=== PATIENT | female | born 1980 | race Caucasian/White ===

== ENCOUNTER 2019-12-20 11:40 | Emergency (ER) | payer OTHER ==
[~2019-12-20] VITALS: Ht 157.5 cm; Wt 80.7 kg
== END 2019-12-20 13:26 | disposition home or self-care (01) ==
LOC: ER 11:40
DX: M94.0 Chondrocostal junction syndrome [Tietze] (principal)

== ENCOUNTER 2020-06-12 11:30 | Emergency (ER) | payer OTHER ==
[~2020-06-12] VITALS: Ht 154.9 cm; Wt 83.9 kg
[2020-06-12] MEDS ORDERED: ZESTRIL5 MG (11:45)
== END 2020-06-12 17:31 | disposition home or self-care (01) ==
LOC: ER 11:30
DX: M54.2 Cervicalgia (principal); M62.838 Other muscle spasm; G43.809 Other migraine, not intractable, without status migrainosus

== ENCOUNTER 2021-10-05 07:58 | Outpatient (CLI) | payer OTHER ==
[~2021-10-05 07:58] MED LIST: ZESTRIL5 MG
== END 2021-10-05 09:15 | disposition home or self-care (01) ==
LOC: PRENATAL 07:58
PROVIDERS: ATTEND Obstetrics & Gynecology Maternal & Fetal Medicine
DX: O35.0XX0 Maternal care for (suspected) central nervous system malformation in fetus, not applicable or unspecified (principal); O35.3XX0 Maternal care for (suspected) damage to fetus from viral disease in mother, not applicable or unspecified; O09.529 Supervision of elderly multigravida, unspecified trimester; O10.019 Pre-existing essential hypertension complicating pregnancy, unspecified trimester; O99.210 Obesity complicating pregnancy, unspecified trimester; O09.219 Supervision of pregnancy with history of pre-term labor, unspecified trimester; O42.913 Preterm premature rupture of membranes, unspecified as to length of time between rupture and onset of labor, third trimester; Z3A.30 30 weeks gestation of pregnancy

== ENCOUNTER 2021-11-01 09:04 | Outpatient (CLI) | payer OTHER | END 2021-11-01 10:35 | disposition home or self-care (01) | LOC: PRENATAL 09:04 | PROVIDERS: ATTEND Obstetrics & Gynecology Maternal & Fetal Medicine | DX: O36.80X0 Pregnancy with inconclusive fetal viability, not applicable or unspecified (principal); O34.219 Maternal care for unspecified type scar from previous cesarean delivery; Z3A.13 13 weeks gestation of pregnancy ==